=== PATIENT | male | born 1950 | race Caucasian/White ===

== ENCOUNTER 2017-06-01 08:37 | Day surgery (SDC) | payer MEDICARE, BC ==
[2017-06-01] MEDS ORDERED: ACETAZOLAMIDE 250 MG PO ONE (08:48)
[2017-06-01] MEDS: PROPARACAINE HCL 0.5% OPHTHALMIC SOL ONE ×3 (09:10→10:43)
[2017-06-01] MEDS: PHENYLEPHRINE HCL 10% OPHTHAL SOL ONE ×2 (09:10→09:23)
[2017-06-01] MEDS: CYCLOPENTOLATE 1% SOL ONE ×2 (09:11→09:23)
[2017-06-01] MEDS: KETOROLAC 0.5% OPTH 60 DROP SOL ONE ×2 (09:12→09:24)
[2017-06-01] MEDS ORDERED: MIDAZOLAM 2 MG/2 ML SOL ONE (10:07)
[2017-06-01] MEDS ORDERED: FENTANYL 100MCG/2ML SOL ONE (10:07)
[2017-06-01] MEDS ORDERED: LIDOCAINE HCL 1% MPF SOL ONE (10:28)
[2017-06-01] MEDS ORDERED: POVIDONE IODINE 5% SOL ONE (10:28)
[2017-06-01] MEDS ORDERED: BSS 500 ML 500 ML IR ONE (10:28)
[2017-06-01 11:26] VITALS: RESP 20; TEMP 97.4; O2SAT 97
[2017-06-01 11:50] VITALS: BP 174/89; PULSE 79
== END 2017-06-01 11:45 | disposition home or self-care (01) | DRG 125 ==
LOC: SURG 08:37
PROVIDERS: ATTEND Ophthalmology
DX: H25.9 Unspecified age-related cataract (principal); H40.10X0 Unspecified open-angle glaucoma, stage unspecified
CPT/HCPCS: 0191T; 66984; J2250; J3010; A9270-GY; C1783; J2001

== ENCOUNTER 2018-12-24 20:50 | Emergency (ER) | payer BC, MEDICARE, OTHER ==
[2018-12-24 21:26] VITALS: RESP 12; TEMP 97.9
[2018-12-24] MEDS ORDERED: LISINOPRIL 20 MG TAB PO SCH (21:45)
[2018-12-24] MEDS ORDERED: LISINOPRIL 20 MG TAB ONE (21:46)
[2018-12-24 22:14] VITALS: BP 182/108; PULSE 79; O2SAT 97
== END 2018-12-24 21:55 | disposition home or self-care (01) | DRG 151 ==
LOC: ED 20:50
DX: R04.0 Epistaxis (principal); I10 Essential (primary) hypertension
CPT/HCPCS: 99282; 99283; A9270-GY